=== PATIENT | male | born 1980 | race Caucasian/White ===

== ENCOUNTER 2021-06-12 17:12 | Emergency (ER) | payer OTHER ==
[~2021-06-12] VITALS: Ht 175.3 cm; Wt 99.8 kg
[~2021-06-12 17:12] MED LIST: BYSTOLIC 5 MG5 M1 PO; BYSTOLIC10 MG PO; IBUPROFEN 800800 MG PO; NOHOMEMEDICATIONS; NORCO 5-325 TA1 EACH PO; PROTONIX 20 MG20 MG PO; PROTONIX40 M1 PO
[2021-06-12 17:58] LABS: ABSOLUTE BASOPHILS 0.1 thou/uL (0.0-0.2); ABSOLUTE EOSINOPHILS 0.2 thou/uL (0.0-0.7); ABSOLUTE LYMPHOCYTES 2.1 thou/uL (0.8-5.3); ABSOLUTE MONOCYTES 0.5 thou/uL (0.0-1.2); BASOPHILS 1.3 %; EOSINOPHILS 1.6 %; HEMATOCRIT 43.6 % (42.0-52.0); HEMOGLOBIN 15.8 gm/dL (14.0-18.0); LYMPHOCYTES 21.1 %; MCH 30.5 pg (26.0-34.0); MCHC 36.3 g/dL (28.0-37.0); MCV 84.1 fL (80.0-100.0); MONOCYTES 4.9 %; MPV 7.8 fl. (7.2-11.1); NUCLEATED RBCS 0 /100WBC; PLATELET COUNT* 272 thou/uL (150-400); POLYS 71.1 %; RBC 5.19 mil/uL (4.50-6.00); RDW-CV 13.5 % (10.5-14.5); WBC 9.9 thou/uL (4.0-11.0)
[2021-06-12 18:07] LABS: CALCIUM 8.5 mg/dL (8.5-10.1); CREATININE 1.3 mg/dL (0.6-1.3); POTASSIUM 3.8 mmol/L (3.5-5.1)
[2021-06-12 18:17] LABS: MAGNESIUM 1.9 mg/dL (1.8-2.4); TOTAL BILIRUBIN 0.3 mg/dL (<0.1-1.0); TOTAL PROTEIN 7.4 g/dL (6.4-8.2)
[2021-06-12] MEDS ORDERED: ZOFRAN ODT4 MG PO (20:26)
[2021-06-12] MEDS ORDERED: TORADOL 10 MG T10 MG PO (20:26)
[2021-06-12] MEDS ORDERED: BUTALB-APAP-CA1 EACH PO (20:26)
[2021-06-12 20:40] VITALS: BP 147/85
--- NOTE | 2021-06-13 13:32 | EKG ---
[place] [address] ELECTROCARDIOGRAM REPORT Name: ZAIRA BETANCUR Room: [facility]#: [id number] Admission: 06/12/21 Attend Phys: Discharge: 06/12/21 Date of : 80 Date of Service: 06/12/21 1717 Report #: [id number] THIS REPORT FOR: //name// [facility] ED Test Date: 2021-06-12 Test Time: 17:17:00 Pat Name: ZAIRA BETANCUR Department: Room: Gender: Concession Worker: Rehan : 1980 Requested By: Mark Nixon Order Number: [id number] MD: Sky Rob Measurements Intervals [place] Rate: 118 P: 51 SD: 151 QRS: 17 QRSD: 83 T: 24 QT: 310 QTc: 435 Interpretive Statements Sinus tachycardia Abnormal R-wave progression, early transition Compared to ECG 10/24/2013 10:32:08 Sinus rhythm no longer present Electronically Signed On 06-13-2021 13:32:15 CDT by Sky Rob [email or web address] <ELECTRONICALLY SIGNED> By: Sky Rob MD, [facility] 06/13/21 1332 1717 171 Sky Rob MD, [facility] /EPI
== END 2021-06-12 20:40 | disposition home or self-care (01) ==
LOC: M.ERS 17:12
PROVIDERS: Emergency Medicine Emergency Medical Services
DX: R07.89 Other chest pain (principal); Z20.822 Contact with and (suspected) exposure to COVID-19; R00.2 Palpitations; R06.00 Dyspnea, unspecified; R10.13 Epigastric pain; R42 Dizziness and giddiness; R11.0 Nausea

== ENCOUNTER → 2021-07-07 | Outpatient (CLI) | payer OTHER ==
[2021-07-07] VITALS (9 sets, daily range): BP systolic 95–155; BP diastolic 53–98
[~2021-07-07] MED LIST changes: +BUTALB-APAP-CA1 EACH PO; +TORADOL 10 MG T10 MG PO; +ZOFRAN ODT4 MG PO
--- NOTE | 2021-07-09 09:10 | PROC ---
[address] [address] PROCEDURE REPORT Name: ZAIRA BETANCUR Room: [facility]#: [id number] Admission: 07/07/21 Attend Phys: KELVIN Tesfaye Discharge: Date of : 80 Report #: [id number] THIS REPORT FOR: cc: Lianna Hartman. Lianna Mendez. Eduin Gallegos MD [facility] ~ cc: KELVIN Luz DATE OF PROCEDURE: 07/07/2021 TILT TABLE TEST The patient was prepped for the tilt table after starting an IV, he developed nausea and sweatiness with his blood pressure falling from 144/79-84/68 with heart rate falling from 105-60. He became dizzy and clammy without allan syncope. These symptoms gradually remitted and he returned to normal hemodynamic arrhythmic status. The tilt table test was commenced approximately 38 minutes later. With tilting and without additional provocation, the patient noted tingling on the side of his face and his blood pressure fell from 155/88-128/68 with heart rate falling from 105-55. He became lethargic, opens eyes, began to roll back in his head and he had near syncope. He was restored to a supine position with tilting having been discontinued. He did not ever receive a nitrate provocation. Therefore, the patient developed hypotension, bradycardia and alteration of consciousness with tilting him without the requirement for a nitrate provocation. After returning the patient to a supine position, he returned to normal hemodynamic arrhythmic status and was clinically stable. IMPRESSION: 1. Vagal reaction to initial starting IV with a fall in heart rate and blood pressure with near syncope developed. 2. Positive tilt table test with hypotension and bradycardia with near syncope provoked by tilting without nitrate provocation. Discussions with the patient regarding avoidance behavior were done in detail with the patient and family. <ELECTRONICALLY SIGNED> By: Eduin Chester MD, FACC 07/09/21 0910 1439 [id number] Chester MD, FACC /nt
== END | disposition home or self-care (01) ==
LOC: M.ULTRA 09:00 → M.CL 10:00
PROVIDERS: ATTEND Specialist
DX: R42 Dizziness and giddiness (principal); R55 Syncope and collapse; R00.2 Palpitations